=== PATIENT | male | born 1945 | race Caucasian/White ===

== ENCOUNTER 2017-12-31 23:25 | Emergency (ER) | payer OTHER ==
[~2017-12-31] VITALS: Ht 170.2 cm; Wt 85.3 kg
[~2017-12-31 23:25] MED LIST: CLEOCIN HCL300 MG PO; DIOVAN40 MG; INTESTINEX1 CAP PO
[2018-01-01] MEDS ORDERED: DOLOGESIC 500-1 EACH PO (03:14)
== END 2018-01-01 03:23 | disposition home or self-care (01) ==
LOC: ER 23:25
DX: S42.022A Displaced fracture of shaft of left clavicle, initial encounter for closed fracture (principal); W18.2XXA Fall in (into) shower or empty bathtub, initial encounter; Y93.E1 Activity, personal bathing and showering; Y92.89 Other specified places as the place of occurrence of the external cause; Y99.8 Other external cause status

== ENCOUNTER 2019-10-07 08:35 | Day surgery (SDC) | payer OTHER ==
[~2019-10-07 08:35] MED LIST changes: +DOLOGESIC 500-1 EACH PO
== END 2019-10-07 13:45 | disposition home or self-care (01) ==
LOC: AMB-ENDOS 08:35 → ADM 14:00
PROVIDERS: ATTEND Surgery
DX: D12.3 Benign neoplasm of transverse colon (principal)

== ENCOUNTER 2019-10-07 22:21 | Emergency (ER) | payer OTHER ==
[~2019-10-07] VITALS: Ht 175.3 cm; Wt 106.6 kg
== END 2019-10-08 00:23 | disposition home or self-care (01) ==
LOC: ER 22:21
DX: K91.841 Postprocedural hemorrhage of a digestive system organ or structure following other procedure (principal)